=== PATIENT | female | born 2005 | race Caucasian/White ===

== ENCOUNTER 2024-06-20 09:54 | Emergency (ER) | payer OTHER, SELFPAY ==
--- NOTE | 2024-06-20 10:11 | ED.GENMED ---
ED Provider Triage
<Daphney Connell INDUSTRIAL SERVICES WORKER - Last Filed: 06/20/24 10:17>
-
Patient seen by provider in Triage?: Seen in Triage
Attestation: A medical screening examination has been initiated by a qualified medical provider. Based on the assessment performed at this time, it has been determined that an emergent medical condition may exist and the patient has been informed
that further medical evaluation and possible additional diagnostic testing may be needed.
HPI: 19-year-old female awakened with right flank pain, pain is 9/10, she is pale and pacing. Nausea with retching. Burning with urination. Had recent UTI, treated with Bactrim liquid, last dose 10-12 days ago.
Hives with NSAIDs
GENERAL: Alert , in no apparent distress
EYE: No visual abnormalities.
ENT: No visible abnormalities.
LUNGS: No acute respiratory distress
NEUROLOGICAL: Alert and oriented
SKIN: Pale. Skin intact. No visible changes.
MUSCULOSKELETAL: Moving extremities normally
PSYCH: Anxious and appropriate interaction.
This is a medical evaluation conducted in person to initiate diagnostic evaluation and provide initial therapeutics. Please see further documentation by the treating clinician.
History of Present Illness
<Daphney Connell INDUSTRIAL SERVICES WORKER - Last Filed: 06/20/24 10:17>
General
Chief Complaint: Flank Pain
Time Seen by Provider: 06/20/24 10:35
<Ever Amor PA-C - Last Filed: 06/20/24 14:11>
General
Source: patient
History of Present Illness
History of Present Illness:
19-year-old female otherwise healthy presents with sudden onset of right flank pain starting this morning. There is associated nausea and dry heaves. The pain does occasionally radiate to the front. The pain is constant with occasional
exacerbations of the pain. She is pacing. Cannot find a comfortable spot. No prior history of kidney stones. Last menstrual cycle was currently at this moment. No chance of . No chest pain or shortness of breath. No other complaints
at this time
Past History
<Daphney Connell INDUSTRIAL SERVICES WORKER - Last Filed: 06/20/24 10:17>
Social History
Tobacco: Non-smoker
Alcohol: None
Drug: None
Phy Exam
<Ever Amor PA-C - Last Filed: 06/20/24 14:11>
Physical Exam
Physical Exam:
General: Uncomfortable appearing female no acute respiratory distress
HEENT: Normocephalic atraumatic
Heart: Regular rate and rhythm no murmurs
Lungs: Clear no wheeze
Abdomen there is right sided costovertebral angle tenderness and mild right mid abdomen tenderness.
Extremities: No cyanosis
Skin warm no rash
Course
<Daphney Connell, INDUSTRIAL SERVICES WORKER - Last Filed: 06/20/24 10:17>
Orders/Labs/Results
Orders:
Orders
06/20/24 10:12
Ketorolac [Toradol] 15 mg IV NOW STA
06/20/24 10:13
Ondansetron Injectable [Zofran] 4 mg IV NOW STA
06/20/24 10:14
Test Result ONCE
06/20/24 10:35
HYDROmorphone [Dilaudid] 0.5 mg .ROUTE .STK-MED ONE
06/20/24 10:40
HYDROmorphone [Dilaudid] 0.5 mg IV NOW STA
06/20/24 10:43
Complete Blood Count/With Diff Urgent
06/20/24 10:44
CT Abd/pel Without Iv Or Oral Urgent
Comment:
Reason For Exam: right flank pain
06/20/24 12:21
Comprehensive Metabolic Panel Urgent
HCG, Serum Qualitative Screen Urgent
06/20/24 13:00
UA Reflex to Culture [Urinalysis Reflex To Culture] Urgent
Date Specimen was Collected: 06/20/24
Time Specimen was Collected: 12:59
Urine Microscopic Reflex Cult Urgent
Abnormal Lab Results
06/20/24 06/20/24 06/20/24
10:43 12:21 13:00
MCHC 32.7 L g/dL
(33.0-37.0)
Neutrophils % 37.0 L %
(42.2-75.2)
Lymphocytes % 54.9 H %
(20.5-51.1)
Chloride 109 H mmol/L
(98-107)
Glucose 107 H mg/dl
(70-99)
Ur Occult Blood Reflex 4+ A
(Negative)
Urine RBC 11-15 A /HPF
(0-2)
06/20/24 10:43
06/20/24 12:21
Vital Signs
Initial and Last Documented VS:
Initial Vital Signs
Temp Pulse Resp BP Pulse Ox
98.3 F 84 16 104/60 98
06/20/24 10:12 06/20/24 10:12 06/20/24 10:12 06/20/24 10:12 06/20/24 10:12
Last Documented Vital Signs
Temp Pulse Resp BP Pulse Ox
98.3 F 84 16 125/75 100
06/20/24 10:12 06/20/24 10:12 06/20/24 10:12 06/20/24 10:32 06/20/24 10:32
Dashalt;Ever Amor PA-C - Last Filed: 06/20/24 14:11>
Orders/Labs/Results
Orders:
Orders
06/20/24 10:12
Ketorolac [Toradol] 15 mg IV NOW STA
06/20/24 10:13
Ondansetron Injectable [Zofran] 4 mg IV NOW STA
12/16/24 10:14
Test Result ONCE
06/20/24 10:35
HYDROmorphone [Dilaudid] 0.5 mg .ROUTE .STK-MED ONE
06/20/24 10:40
HYDROmorphone [Dilaudid] 0.5 mg IV NOW STA
06/20/24 10:43
Complete Blood Count/With Diff Urgent
06/20/24 10:44
CT Abd/pel Without Iv Or Oral Urgent
Comment:
Reason For Exam: right flank pain
06/20/24 12:21
Comprehensive Metabolic Panel Urgent
HCG, Serum Qualitative Screen Urgent
06/20/24 13:00
UA Reflex to Culture [Urinalysis Reflex To Culture] Urgent
Date Specimen was Collected: 06/20/24
Time Specimen was Collected: 12:59
Urine Microscopic Reflex Cult Urgent
Abnormal Lab Results
06/20/24 06/20/24 06/20/24
10:43 12:21 13:00
MCHC 32.7 L g/dL
(33.0-37.0)
Neutrophils % 37.0 L %
(42.2-75.2)
Lymphocytes % 54.9 H %
(20.5-51.1)
Chloride 109 H mmol/L
(98-107)
Glucose 107 H mg/dl
(70-99)
Ur Occult Blood Reflex 4+ A
(Negative)
Urine RBC 11-15 A /HPF
(0-2)
06/20/24 10:43
06/20/24 12:21
Vital Signs
Initial and Last Documented VS:
Initial Vital Signs
Temp Pulse Resp BP Pulse Ox
98.3 F 84 16 104/60 98
06/20/24 10:12 06/20/24 10:12 06/20/24 10:12 06/20/24 10:12 06/20/24 10:12
Last Documented Vital Signs
Temp Pulse Resp BP Pulse Ox
98.3 F 84 16 125/75 100
06/20/24 10:12 06/20/24 10:12 06/20/24 10:12 06/20/24 10:32 06/20/24 10:32
<Ever Amor PA-C - Last Filed: 06/20/24 14:11>
MDM/Problems Addressed
Differential Diagnosis Includes:
Patient with right flank pain sudden onset. Consider renal colic versus ectopic versus constipation versus appendicitis
Check labs. Unlikely to be ectopic as she is currently on her menstrual cycle. Patient has severe reaction to any NSAIDs. Will treat with Zofran and Dilaudid.
CT pending
<Ever Amor PA-C - Last Filed: 06/20/24 14:11>
*Critical Care Note
Total Time (30-74mins, 75-104mins- exclusive of procedures): Not Applicable
<Ever Amor PA-C - Last Filed: 06/20/24 14:11>
Update Note
Update Note:
CT demonstrates 1 mm calcification within the intramural portion of the bladder. Findings on CT suggestive of recently passed stone. No infection in the urine. Patient feeling much better upon reassessment. Recommended creased hydration and
Tylenol for pain. She was referred to urology if needed. Stable for discharge
ED Attending Note
<Daphney Connell INDUSTRI[employer] SERVICES WORKER - Last Filed: 06/20/24 10:17>
-
Portions of this chart may have been created with voice recognition software.� Occasional wrong word or��sound alike� substitutions may have occurred due to the inherent limitations of voice recognition software.
Discharge Plan
Departure
Patient Disposition: Home (Routine Discharge)
Date of Disposition: 06/20/24
Time of Disposition: 14:10
Patient with high blood pressure during this ER visit?: No
Discharge Problem:
Kidney stone
Instructions: Kidney Stones (DC)
Referrals:
Red Knapp MD [Active] -
UNKNOWN - PT DOES,NOT KNOW [Family Provider] -
Activity Restrictions/Additional Instructions:
Use urine strainer. Drink plenty of fluids. Use Tylenol if needed for pain. As discussed it looks like you have just passed a stone into the bladder. Please return here for worsening symptoms otherwise consider following up with urology if
symptoms persist
Interventions
Interventions:
*Risk Screen - Suicide Last Done: 06/20/24 10:20
*General Assessment Last Done: 06/20/24 10:20
*Neglect/Abuse Screening Last Done: 06/20/24 10:20
ED- Fall Risk Assessment Last Done: 06/20/24 10:20
*ED COVID-19 Vaccine History Last Done: 06/20/24 10:12
AE-Sxabvi-Xadklyykmo Assessment Last Done: 06/20/24 10:20
ED-Female Genitourinary Assessment Last Done: 06/20/24 10:20
Discharge Date and Time
Print Language: PAKISTANI
[2024-06-20 10:12] VITALS: BP 104/60
[2024-06-20 10:20] VITALS: BMI 20.6
[2024-06-20 10:32] VITALS: BP 125/75
[2024-06-20] MEDS: ZOFRAN 4 MG IV (10:39)
[2024-06-20] MEDS: DILAUDID 0.5 MG IV (10:41)
[2024-06-20 11:10] LABS: Hemoglobin 13.4 g/dL (12.0-16.0); Mean Corp Hgb Conc. 32.7 g/dL (33.0-37.0); Mean Corpuscular Hgb 30.5 pg (27.0-31.0); Mean Corpuscular Volume 93.2 fL (81.0-99.0); Mean Platelet Volume 9.5 fL (7.4-10.4); Platelet Count 216 10^3/uL (130-400); Red Cell Dist. Width 12.8 % (11.5-14.5); White Blood Cell Count 4.9 10^3/uL (4.8-10.8)
[2024-06-20 12:23] LABS: % Immature Granulocytes 0.4 % (0-0.5); % Lymphocytes 54.9 % (20.5-51.1); % Monocytes 5.7 % (1.7-9.3); Absolute Basophils 0.1 10^3/uL (0-0.2); Absolute Eosinophils 0.1 10^3/uL (0-0.7); Absolute Lymphocytes 2.7 10^3/uL (1.2-3.4); Absolute Monocytes 0.3 10^3/uL (0.1-0.6); Absolute Neutrophils 1.8 10^3/uL (1.4-6.5); Nucleated Red Blood Cells % 0 %
[2024-06-20 12:53] LABS: HCG, Serum Qualitative Screen Negative
[2024-06-20 12:54] LABS: ALT (SGPT) 16 U/L (0-35); AST (SGOT) 23 U/L (14-36); Albumin 4.1 g/dl (3.5-5.0); Alkaline Phosphatase 55 U/L (38-126); Blood Urea Nitrogen 11 mg/dl (7-17); Calcium 8.8 mg/dl (8.4-10.2); Carbon Dioxide 23 mmol/L (22-30); Chloride 109 mmol/L (98-107); Estimated Creatinine Clearance > 125 ml/min; Glucose 107 mg/dl (70-99); Potassium 4.4 mmol/L (3.5-5.1); Sodium 139 mmol/L (135-145); Total Bilirubin 0.2 mg/dl (0.2-1.3); Total Protein 6.4 g/dl (6.3-8.2); eGFR > 60.00
[2024-06-20 13:10] LABS: Urine Albumin Trace (Neg - Trace); Urine Bilirubin Negative (Negative); Urine Character Clear (Clear); Urine Color Yellow; Urine Glucose Negative (Negative); Urine Ketone Negative (Negative); Urine Leukocyte Negative (Negative); Urine Nitrite Negative (Negative); Urine Occult Blood 4+ (Negative); Urine Urobilinogen Negative (Neg - 1+)
[2024-06-20 14:25] VITALS: BP 120/76
== END 2024-06-20 14:30 | disposition home or self-care (01) ==
LOC: EMR 09:54
PROVIDERS: Physician Assistant; Registered Nurse; EMERGENCY PHYSICIAN Emergency Medicine
DX: N20.0 Calculus of kidney (principal)
CPT/HCPCS: 99284; 96374; 96375; 74176; 80053; 81003; 81015; 84703; 85025